=== PATIENT | male | born 1945 | race Caucasian/White ===

== ENCOUNTER 2018-01-08 10:25 | Day surgery (SDC) | payer MEDICARE, OTHER ==
[2018-01-07 09:16] LABS: BASOPHILS # (AUTO) 0.1 X10'3 (0-0.2); BASOPHILS % (AUTO) 0.6 % (0-1); EOSINOPHILS # (AUTO) 0.2 X10'3 (0-0.9); HEMOGLOBIN 14.3 g/dl (14.0-17.9); LYMPHOCYTES # (AUTO) 1.5 X10'3 (1.1-4.8); LYMPHOCYTES % (AUTO) 15.9 % (21-51); MEAN CORPUSCULAR HEMOGLOBIN 32.3 PG (27.0-31.0); MEAN CORPUSCULAR HGB CONC 34.8 % (33.0-36.5); MEAN CORPUSCULAR VOLUME 92.9 FL (78-98); MONOCYTES # (AUTO) 0.9 X10'3 (0-0.9); MONOCYTES % (AUTO) 9.3 % (2-12); NEUTROPHILS # (AUTO) 6.6 X10'3 (1.8-7.7); NEUTROPHILS % (AUTO) 72.2 % (42-75); PLATELET COUNT 220 X10'3 (140-440); RED BLOOD COUNT 4.41 X10'6 (4.70-6.10); RED CELL DISTRIBUTION WIDTH 13.4 % (11.5-14.5); WHITE BLOOD COUNT 9.1 X10'3 (4.5-11.0)
[2018-01-07 09:36] LABS: ALBUMIN 3.8 G/DL (3.4-5.0); ANION GAP 3 (8-16); BLOOD UREA NITROGEN 15 MG/DL (7-18); CALCIUM 8.7 MG/DL (8.5-10.1); CHLORIDE 105 MMOL/L (99-107); CHOL/HDL RATIO 2.1 (0.00-4.99); CHOLESTEROL 86 MG/DL (0-200); CREATININE 0.88 MG/DL (0.60-1.10); GLUCOSE 106 MG/DL (70-104); HDL CHOLESTEROL 41 MG/DL (35-60); LDL CHOLESTEROL 38 MG/DL (50-100); POTASSIUM 4.2 MMOL/L (3.5-5.1); SODIUM 138 MMOL/L (135-145); TOTAL CARBON DIOXIDE 30.5 MMOL/L (24-32); TRIGLYCERIDES 71 MG/DL (20-135); eGFR 85 ML/MIN
[2018-01-07 09:42] LABS: PARTIAL THROMBOPLASTIN TIME 26 SECONDS (22-32); PROTHROMBIN TIME 10.4 SECONDS (9.0-12.0)
[~2018-01-08] VITALS: Ht 177.8 cm; Wt 112.9 kg
[2018-01-08] VITALS (10 sets, daily range): BP systolic 111–127; BP diastolic 60–74
[2018-01-08] MEDS ORDERED: normal saline 1000ml 1,000 ML IV SCH (11:35)
[2018-01-08] MEDS ORDERED: diphenhydrAMINE 25mg capsule PO ONE (11:40)
[2018-01-08] MEDS ORDERED: LIDOcaine/PRILOcaine 5gm cream TP ONE (11:40)
[2018-01-08] MEDS ORDERED: LORazepam 0.5 MG tablet PO ONE (11:40)
[2018-01-08] MEDS ORDERED: METF500T PO (11:45)
[2018-01-08] MEDS ORDERED: NAPR220C15 PO (11:45)
[2018-01-08] MEDS ORDERED: CHOL10002 PO (11:45)
[2018-01-08] MEDS ORDERED: ASPI-1265 PO (11:45)
[2018-01-08] MEDS ORDERED: NITR0.4T51 SL (11:45)
[2018-01-08] MEDS ORDERED: LOSA25TA96 PO (11:45)
[2018-01-08] MEDS ORDERED: CYAN-19 PO (11:45)
[2018-01-08] MEDS ORDERED: ATOR40TA PO (11:45)
[2018-01-08] MEDS ORDERED: midazolam 2 mg/2 ml injection ONE (14:02)
[2018-01-08] MEDS ORDERED: fentaNYL/PF 50MCG/1 ML 2ML syringe ONE (14:03)
[2018-01-08] MEDS ORDERED: iohexol 350MG/ML 100ml bottle IV ONE (14:03)
[2018-01-08] MEDS ORDERED: LIDOcaine 1% w/EPI 1:100,000 30ml vial (MDV) ONE (14:03)
[2018-01-08] MEDS ORDERED: nitroGLYCERIN-Tridil 50MG/D5W 250 ML IV ONE (15:00)
[2018-01-08] MEDS ORDERED: verapamil 2.5 mg/ml inj IV ONE (15:00)
[2018-01-08] MEDS ORDERED: heparin 1,000unit/ml 10ml vial 10 ML ONE (15:00)
== END 2018-01-08 18:47 | disposition home or self-care (01) ==
LOC: SSTAY O 10:25
PROVIDERS: ATTEND Internal Medicine Interventional Cardiology
DX: I25.118 Atherosclerotic heart disease of native coronary artery with other forms of angina pectoris (principal); E11.9 Type 2 diabetes mellitus without complications; I10 Essential (primary) hypertension; Z90.2 Acquired absence of lung [part of]; Z88.0 Allergy status to penicillin; Z87.891 Personal history of nicotine dependence; Z96.653 Presence of artificial knee joint, bilateral; Z96.641 Presence of right artificial hip joint; Z85.46 Personal history of malignant neoplasm of prostate; Z92.3 Personal history of irradiation; Z79.82 Long term (current) use of aspirin; Z79.84 Long term (current) use of oral hypoglycemic drugs; Z98.890 Other specified postprocedural states; Z79.899 Other long term (current) drug therapy
CPT/HCPCS: 36415; 80048; 80061; 82948; 85025; 85610; 85730; 93005; 93454; 99152; A6257; A6258; A6402; C1769; J1644; J2250; J3010; J3490; J7030; Q0163; Q9967; 99153; A4620